=== PATIENT | female | born 1965 | race Caucasian/White ===

== ENCOUNTER 2019-07-30 21:29 | Observation (INO) | payer OTHER ==
[~2019-07-30] VITALS: Ht 165.1 cm; Wt 103.4 kg
[2019-07-30 21:41] VITALS: BP 187/139
[2019-07-30 22:12] LABS: URINE BILIRUBIN NEGATIVE (Negative); URINE BLOOD NEGATIVE (Negative); URINE CLARITY CLEAR; URINE COLOR YELLOW; URINE GLUCOSE-RANDOM NEGATIVE (Negative); URINE KETONES NEGATIVE (Negative); URINE LEUKOCYTES-REFLEX TRACE (Negative); URINE NITRITE-REFLEX NEGATIVE (Negative); URINE PROTEIN NEGATIVE (Negative); URINE SPECIFIC GRAVITY 1.015 (1.005-1.030); URINE UROBILINOGEN 0.2 E.U./dl (0.2-1.0)
[2019-07-30 22:18] LABS: SQUAMOUS 4-10 Moderate /LPF (0-3)
[2019-07-30 22:19] LABS: CASTS None Seen /LPF (None Seen); CRYSTALS None Seen /LPF (None Seen); MUCUS None Seen strn/LPF (None Seen); URINE WBC-REFLEX 0-5 Rare /HPF (0-5)
[2019-07-30 22:20] LABS: BACTERIA-REFLEX 1-9 Few /HPF (None Seen); URINE RBC None Seen /HPF (0-2)
[2019-07-30 22:37] LABS: ABSOLUTE EOSINOPHILS 0.1 thou/uL (0.0-0.7); ABSOLUTE LYMPHOCYTES 0.5 thou/uL (0.8-5.3); ABSOLUTE MONOCYTES 0.5 thou/uL (0.0-1.2); BASOPHILS 0.5 %; EOSINOPHILS 2.4 %; HEMATOCRIT 38.7 % (37.0-47.0); HEMOGLOBIN 13.4 gm/dL (12.0-15.0); LYMPHOCYTES 8.4 %; MCH 30.4 pg (26.0-34.0); MCHC 34.6 g/dL (28.0-37.0); MONOCYTES 7.7 %; MPV 9.3 fl. (7.2-11.1); NUCLEATED RBCS 0 /100WBC; PLATELET COUNT* 242 thou/uL (150-400); RDW-CV 13.3 % (10.5-14.5); WBC 6.1 thou/uL (4.0-11.0)
[2019-07-30 22:40] LABS: CALCIUM 8.8 mg/dL (8.5-10.1); CREATININE 0.7 mg/dL (0.6-1.3); POTASSIUM 3.9 mmol/L (3.5-5.1)
[2019-07-30 22:51] LABS: ALBUMIN 3.5 g/dL (3.4-5.0); TOTAL BILIRUBIN 0.3 mg/dL (<0.1-1.0); TOTAL PROTEIN 7.8 g/dL (6.4-8.2)
[2019-07-31 00:02] LABS: INFLUENZA A ANTIGEN Negative (Negative); INFLUENZA B ANTIGEN Negative (Negative)
[2019-07-31 02:05] VITALS: BP 110/62
[2019-07-31 02:18] VITALS: BP 129/67
--- NOTE | 2019-07-31 06:06 | NUR ---
PT ADMITTED TO ROOM 316 FROM ED, NO FAMILY OR FRIENDS ON ARRIVAL, ADMISSION ASSESSMENT AND HISTORY COMPLETE, ORIENTED TO ROOM, CALL LIGHT, PHONE, DIET, POC, PAIN MANAGEMENT AND SAFETY, PT POOR HISTORIAN, UNABLE TO OBTAIN HOME MEDICATIONS, STATES WILL BE HERE TODAY AND WILL BE ABLE TO GIVE HOME MEDICATION LIST, NOT ABLE TO OBTAIN HOME PHARMACY, PT STATES BOTH HER AND PT RECENTLY MOVED HERE FROM [facility] APROX 2MONTHS AGO, ALL MEDICATIONS SHE HAS WERE PRESCRIBED WHILE LIVING IN [place] AND OBTAINED BEFORE MOVING TO [place], RECENT PCP AND NEUROLOGIST ALSO RESIDE IN [facility], DENIES PAIN OR DISCOMFORT, TEARFUL, STATES "SICK OF HAVING MS", EMOTIONAL SUPPORT PROVIDED, NO ADVERSE EFFECTS FROM IV ABT NOTED, INSTRUCTED USE OF CALL LIGHT FOR NEEDS, WANTS, OOB, OR ANY CHANGE IN CONDITON, PT VERBALIZED UNDERSTANDING, CALL LIGHT IN REACH, SAFETY MAINTAINED.
[2019-07-31 08:00] VITALS: BP 160/87
[2019-07-31] MEDS ORDERED: OMEPRAZOLE20 M1 PO (08:40)
[2019-07-31] MEDS ORDERED: BACLOFEN 10MG T10 MG PO (08:40)
[2019-07-31] MEDS ORDERED: FLOMAX0.4 MG PO (08:41)
[2019-07-31] MEDS ORDERED: REBIF SQ (08:42)
[2019-07-31] MEDS ORDERED: PREDNISONE 20 M20 MG PO (09:12)
[2019-07-31] MEDS ORDERED: ZPAK PO (09:12)
--- NOTE | 2019-07-31 10:49 | NUR ---
ASSUMED PT CARE AT 0800, AOX4, UP WITH ASSIST O2 SAT 90'S 2L NC TITRATED TO ROOM AIR. PT COMPLAINS OF HEADACHE AND GERD, MEDS GIVEN ORDERED. PT GOAL FOR DISCHARGE. VSS, AM ASSESSMENT CHARTED, HOURLY ROUNDING, CALL LIGHT WITHIN REACH, WILL CONTINUE TO MONITOR.
[2019-07-31 10:57] VITALS: BP 160/87
--- NOTE | 2019-07-31 12:36 | NUR ---
DISCHAGED PLAN DISCUSSED WITH THE PT AND SPOUSE. MEDICATION PACKET/SCRIPT GIVEN. REMINDED TO FOLLOW UP WITH PCP. REASSESSED O2, SAT AT 100% RA. IV REMOVED. LEFT THE UNIT AT 1220 VIA WHEELCHAIR.
== END 2019-07-31 12:20 | disposition home or self-care (01) ==
LOC: M.ERS 21:29 → M.3W 07-31 01:17 → M.TBA-ER 07-31 01:17 → M.3W 07-31 01:17
PROVIDERS: Emergency Medicine; ADMIT Internal Medicine
DX: J20.8 Acute bronchitis due to other specified organisms (principal); J96.01 Acute respiratory failure with hypoxia; G35 Multiple sclerosis